=== PATIENT | male | born 1955 | race Caucasian/White ===

== ENCOUNTER → 2021-04-03 08:35 | Outpatient (CLI) | payer OTHER, MEDICARE, SELFPAY ==
[2021-04-03 13:49] LABS: COVID19 -Nasal RAPID Negative (Negative)
== END ==
PROVIDERS: Visit Provider Physician Assistant
DX: Z01.812 Encounter for preprocedural laboratory examination (principal); Z20.822 Contact with and (suspected) exposure to COVID-19
CPT/HCPCS: 87635

== ENCOUNTER → 2021-04-05 09:17 | Outpatient (CLI) | payer OTHER, MEDICARE, SELFPAY ==
--- NOTE | 2021-04-06 21:16 | DI.NM.S_ITS ---
DATE OF SERVICE: 04/05/2021 PROCEDURE: Pharmacological perfusion study. INDICATION: Coronary artery disease with underlying myocardial infarction, diabetes mellitus, hypertension and hyperlipidemia. RADIOPHARMACEUTICAL: 25.5 millicurie technetium-99m Myoview IV was injected at stress and 26.0 millicurie technetium-99m Myoview IV was injected at rest. CARDIAC STRESS: The patient underwent IV Lexiscan perfusion study under the supervision of an attending staff, as per standard protocol. The patient remained hemodynamically stable. Baseline rhythm was sinus. During stress, no convincing ischemic changes seen. No significant arrhythmias seen. The patient felt some shortness of breath. RAW DATA: There is increased subdiaphragmatic activity. GATED STUDY: Stress LV ejection fraction 54% percent, and I do not see any obvious wall motion abnormalities. Resting end-diastolic volume 187 mL suggestive of dilated LV. TID ratio 1.03, which is within normal limits. Lung/heart ratio 0.29, which is within normal limits. MYOCARDIAL PERFUSION SCAN: Please note that this patient does not have any prone images. Stress supine and resting supine images were compared to each other. The patient has predominantly fixed, large size, severely decreased perfusion of inferior wall extending into the entire inferoapex, as well as basal inferolateral wall. The patient has mild reversible defect in the distal anteroseptum, as well. RAW DATA: There are no prone images to distinguish inferior wall and inferior apical infarction versus diaphragmatic tissue attenuation artifact. CONCLUSION: This is an abnormal myocardial perfusion study. The following abnormalities seen: 1. Mild reversible ischemia off distal anterior septum. 2. The patient has predominantly fixed, large size, severely decreased perfusion of inferior wall extending into the inferoapex, as well as basal inferolateral wall. In absence of prone images, difficult to distinguish between old infarction in the dominant right coronary artery territory versus diaphragmatic tissue attenuation artifact. However, on raw images, no significant wall motion abnormalities seen in the inferior wall or inferoapex. Dilated left ventricle with left ventricular ejection fraction 54 percent. No transient ischemic dilatation or abnormal lung/heart ratio. On surface electrocardiogram, Q-waves were not seen in the inferior wall. Correlate clinically. Pablito Leyva - Rodolfo/jeannie doc#: [id number]/job#: [id number] dd: 04/06/2021 17:18:00 dt: 04/06/2021 20:51:00 DICTATING MD/COPIES TO: Oniel Abrams MD COPIES MNE: AVIS;
== END ==
PROVIDERS: PCP Internal Medicine; Referring Provider Internal Medicine; Visit Provider Internal Medicine
DX: R94.39 Abnormal result of other cardiovascular function study (principal); I25.10 Atherosclerotic heart disease of native coronary artery without angina pectoris; I25.2 Old myocardial infarction; E11.9 Type 2 diabetes mellitus without complications; I10 Essential (primary) hypertension; E78.5 Hyperlipidemia, unspecified
CPT/HCPCS: 78452; 93017; A9502; J2785